=== PATIENT | female | born 1960 | race Caucasian/White ===

== ENCOUNTER 2018-09-22 09:15 | Inpatient (IN) | payer OTHER ==
[2018-09-22 09:40] VITALS: BMI 19.9
--- NOTE | 2018-09-22 10:51 | HP ---
COWS - Scale Resting Pulse: 1= [place] 81-100 Sweatin= Chills/Flushing Restless Observation: 0= Sits Still Pupil Size: 0= Normal to Room Light Bone or Joint Aches: 2= Severe Diffuse Aches Runny Nose/ Eye Tearin= Runny Nose/Eyes GI Upset > 30mins: 1= Stomach Cramp Tremor Observation: 0= None Yawning Observation: 1= 1-2x During Session Anxiety or Irritability: 2=Irritable/Anxious Goose Flesh Skin: 0=Smooth Skin COWS Score: 10 CIWA Score - Admission Criteria OASAS Guidelines: Admission for Medically Managed Detox: Requires at least one of the followin. CIWA greater than 12 2. Seizures within the past 24 hours 3. Delirium tremens within the past 24 hours 4. Hallucinations within the past 24 hours 5. Acute intervention needed for co occurring medical disorder 6. Acute intervention needed for co occurring psychiatric disorder 7. Severe withdrawal that cannot be handled at a lower level of care (continued vomiting, continued diarrhea, abnormal vital signs) requiring intravenous medication and/or fluids 8. Admission ROS [facility] Allergies/Adverse Reactions: Allergies Allergy/AdvReac Type Severity Reaction Status Date / Time No Known Allergies Allergy Verified 09/22/18 10:10 History of Present Illness: patient here requesting detox from heroin use , reports daily 2 bags via inhalation since age 31 with intermittent periods of sobriety , most recently 7 months ago x 7 months, detox x 2 2018 most recently @ [facility], rehab x 24 May 2018, relapse after d/c , OD x 2 most recently summer 2017 Narcan by EMS , taken to [facility] . Denies outpatient program history . Was in [facility] @ [facility] ( [place], [place] ) 5 years ago MDD 50 mg, tapered off. utox: + esmer , + opi, + bzo cocaine use : 2 bags not daily since age 46 benzo : denies tobacco : 10/27 ppd , requesting nrt w/ patch . PMhx : HIV (dx 1995 , RF=ST, treated in the past at [facility] , latest took meds > 1 yr ago), Hep C (dx 1995 , RF=ST ), no tx . ,breast cancer 1997 ( did not followup " I might have gone once and that's it ) with chemotherapy in 1997 . PSHx: left radical mastectomy 1997 , umbilical hernia ( > 10 years ago ) daughter age 30 A & W Psych : depression, anxiety , suicidal thoughts , denies prior SA /denies current SI/ HI . homeless , unemployed . Exam Limitations: No Limitations - Ebola screening Have you traveled outside of the country in the last 21 days: No Have you had contact with anyone from an Ebola affected area: No Have you been sick,other than usual withdrawal symptoms: No - Review of Systems Constitutional: See HPI EENT: reports: Other (reading glasses , does not have , reports " I am supposed to wear them ") Respiratory: reports: No Symptoms reported Cardiac: reports: No Symptoms Reported GI: reports: See HPI : reports: Frequency Musculoskeletal: reports: Muscle Pain Integumentary: reports: Rash (rash on toribio UE / legs , pt states went to ER 2 weeks ago - per pt told allergic reaction to dust mites) Endocrine: reports: No Symptoms Reported Psychiatric: reports: Orientated x3, Anxious Patient History - Patient Medical History Hx Anemia: Yes Hx Asthma: Yes (ALBUTEROL) Hx Chronic Obstructive Pulmonary Disease (COPD): No Hx Cancer: No Hx Cardiac Disorders: No Hx Congestive Heart Failure: No Hx Hypertension: No Hx Hypercholesterolemia: No Hx Pacemaker: No HX Cerebrovascular Accident: No Hx Seizures: No Hx Dementia: No Hx Diabetes: No Hx Gastrointestinal Disorders: Yes Hx Liver Disease: No Hx Genitourinary Disorders: Yes (vag d/c thick yellow fishy odor ) Hx Sexually Transmitted Disorders: Yes (HIV) Hx Renal Disease (ESRD): No Hx Thyroid Disease: No Hx Human Immunodeficiency Virus (HIV): Yes (1993- no arv , no meds ) Hx Hepatitis C: Yes Hx Depression: Yes Hx Suicide Attempt: No Hx Bipolar Disorder: No Hx Schizophrenia: No - Patient Surgical History Past Surgical History: Yes Hx Neurologic Surgery: No Hx Cataract Extraction: No Hx Cardiac Surgery: No Hx Lung Surgery: No Hx Breast Surgery: Yes Hx Breast Biopsy: Yes (1991- left radical mastectomy ) Hx Abdominal Surgery: Yes (Umbilical Hernia Repair) Hx Appendectomy: No Hx Cholecystectomy: No Hx Genitourinary Surgery: No Hx Section: No Hx Orthopedic Surgery: No Anesthesia Reaction: No - PPD History Previous Implant?: Yes Documented Results: Negative w/proof Implanted On Prior [facility] Admission?: Yes Date: 07/25/14 Results: NEGATIVE - Reproductive History Last Menstrual Period: 07/03/12 Patient : No - Smoking Cessation Smoking history: Current every day smoker Have you smoked in the past 12 months: Yes Aproximately how many cigarettes per day: 5 Hx Chewing Tobacco Use: No Initiated information on smoking cessation: No - Substances Abused Heroin Route: Inhalation Frequency: Daily Amount used: 2 BAGS Age of first use: 31 Date of Last Use: 09/21/18 Cocaine Route: Smoking Frequency: 1-2 times per week Amount used: 2 BAGS Age of first use: 26 Date of Last Use: 09/21/18 Family Disease History - Family Disease History Family Disease History: Heart Disease: Sister, Other: Mother (htn , alzheimers , breast ca) Admission Physical Exam [facility] - Vital Signs Vital Signs: Vital Signs - 24 hr 09/22/18 09:36 Temperature 97.1 F L Pulse Rate 85 Respiratory 17 Rate Blood Pressure 130/76 - Physical General Appearance: Yes: No Apparent Distress, Thin HEENTM: Yes: EOMI, Hearing grossly Normal, Normocephalic, Normal Voice, Pharynx Normal Respiratory: Yes: Chest Non-Tender, Lungs Clear, Normal Breath Sounds Neck: Yes: No masses,lesions,Nodules, Trachea in good position Breast: Yes: Breast Exam Deferred, Surgical Scar (s/p left mastectomy) Cardiology: Yes: Regular Rhythm, Regular Rate, S1, S2, Tachycardia Abdominal: Yes: Normal Bowel Sounds, Non Tender, Flat, Soft Genitourinary: Yes: Frequency Musculoskeletal: Yes: full range of Motion Extremities: Yes: Normal Capillary Refill, Normal Inspection, Normal Range of Motion Neurological: Yes: Fully Oriented, Motor Strength 5/5 Integumentary: Yes: Rash (toribio UE petechial rash) - Diagnostic (1) Opioid dependence Current Visit: Yes Status: Acute Qualifiers: Substance use status: in withdrawal Qualified Code(s): F11.23 - Opioid dependence with withdrawal (2) Cocaine dependence Current Visit: No Status: Chronic Qualifiers: Substance use status: uncomplicated Qualified Code(s): F14.20 - Cocaine dependence, uncomplicated (3) Nicotine dependence Current Visit: No Status: Chronic Qualifiers: Nicotine product type: cigarettes Substance use status: uncomplicated Qualified Code(s): F17.210 - Nicotine dependence, cigarettes, uncomplicated BHS Breath Alcohol Content Breath Alcohol Content: 0 Urine Pregancy Test - Result Urine Test Results: Negative- NO Line Present Urine Drug Screen - Results Drug Screen Negative: No Urine Drug Screen Results: ESMER-Cocaine, OPI-Opiates, BZO-Benzodiazepines
[2018-09-22] MEDS ORDERED: MAGNESIUM CITRATE 300 ML BOTTLE PO PRN (10:59)
[2018-09-22] MEDS ORDERED: MAG HYDROX/AL HYDROX/SIMETH 30 ML UNIT-DOSE CUP PO PRN (10:59)
[2018-09-22] MEDS ORDERED: P-EPHED 60MG/TRIPROLIDI 2.5MG TABLET PO PRN (10:59)
[2018-09-22] MEDS ORDERED: MENTHOL/PHENOL 1 EACH UD MM PRN (10:59)
[2018-09-22] MEDS ORDERED: MAGNESIUM HYDROX 2400MG/30ML ORAL SUSPENSION 30 ML CUP PO PRN (10:59)
[2018-09-22] MEDS ORDERED: guaiFENesin/D-METHORPHAN HB 10 ML UNIT-DOSE CUPS PO PRN (10:59)
[2018-09-22] MEDS ORDERED: METHADONE HCL 10 MG TABLET (FOR DETOX USE ONLY) PO ONE ×2 (11:30→23:00)
[2018-09-22] MEDS ORDERED: ALBUTEROL SO4 8 GM HFA INHALER IH PRN (12:39)
[2018-09-22] MEDS ORDERED: diphenhydrAMINE HCL 25 MG CAPSULE (FP) PO PRN (12:43)
[2018-09-22] MEDS: IBUPROFEN 400 MG TABLET (FP) PO PRN (22:13)
[2018-09-22] MEDS: diazePAM 5 MG TABLET PO PRN (22:13)
[2018-09-22] MEDS: THIAMINE HCL 100 MG TABLET (FP) PO SCH (22:13)
[2018-09-22 23:16] LABS: URINE APPEARANCE TURBID; URINE BILIRUBIN NEGATIVE (<2.0 mg/dL); URINE COLOR YELLOW; URINE GLUCOSE (UA) NEGATIVE (NEGATIVE); URINE KETONE NEGATIVE (NEGATIVE); URINE LEUK ESTERASE 3+ (NEGATIVE); URINE NITRITE NEGATIVE (NEGATIVE); URINE PROTEIN 1+ (NEGATIVE); URINE UROBILINOGEN NEGATIVE mg/dL (0.2-1.0)
[2018-09-22 23:34] LABS: EPI CELLS MODERATE /HPF (FEW); URINE BACTERIA MODERATE /hpf (NONE SEEN)
[2018-09-23] MEDS ORDERED: METHADONE HCL 5 MG TABLET (FOR DETOX USE ONLY) PO ONE (10:00)
[2018-09-23] MEDS ORDERED: METHADONE HCL 10 MG TABLET (FOR DETOX USE ONLY) PO ONE (10:00)
[2018-09-23] MEDS: PRENATAL VITAMINS W/ FOLIC ACID TABLET (FP) PO SCH (10:32)
[2018-09-23] MEDS: diazePAM 5 MG TABLET PO PRN ×2 (10:34→22:20)
[2018-09-23] MEDS: NICOTINE 7 MG/24 HOURS TOPICAL PATCH TD SCH (10:37)
[2018-09-23 10:52] LABS: HEMATOCRIT 32.1 % (32.4-45.2); HEMOGLOBIN 10.2 GM/dL (10.7-15.3); MCH 27.8 pg (25.7-33.7); MCHC 31.7 g/dl (32.0-36.0); MEAN CELL VOLUME 87.8 fl (80-96); MEAN PLT VOLUME 9.8 fl (7.5-11.1); PLATELET COUNT 236 K/MM3 (134-434); RBC 3.66 M/mm3 (3.60-5.2); RDW 19.8 % (11.6-15.6); WHITE BLOOD COUNT 3.5 K/mm3 (4.0-10.0)
[2018-09-23 11:03] LABS: ALBUMIN 3.4 g/dl (3.4-5.0); ALK PHOS 53 U/L (45-117); ANION GAP 6 MMOL/L (8-16); BILIRUBIN,TOTAL 0.5 mg/dL (0.2-1); BLOOD UREA NITROGEN 19 mg/dL (7-18); CALCIUM 9.1 mg/dL (8.5-10.1); CHLORIDE 105 mmol/L (98-107); CO2 29 mmol/L (21-32); CREATININE 0.9 mg/dL (0.55-1.3); GLUCOSE,RANDOM 86 mg/dL (74-106); POTASSIUM 3.7 mmol/L (3.5-5.1); SGOT/AST 25 U/L (15-37); SGPT/ALT 20 U/L (13-61); SODIUM 141 mmol/L (136-145); TOT PROT 9.7 g/dl (6.4-8.2)
[2018-09-23] MEDS ORDERED: BACITRACIN 0.9 GM PACKET TP SCH (11:15)
--- NOTE | 2018-09-23 12:27 | PN ---
S COWS - Scale Resting Pulse: 1= [place] 81-100 Sweatin= No chills or Flushing Restless Observation: 3= Extraneous Movement Pupil Size: 0= Normal to Room Light Bone or Joint Aches: 2= Severe Diffuse Aches Runny Nose/ Eye Tearin= Nasal Congestion GI Upset > 30mins: 1= Stomach Cramp Tremor Observation of Outstretched Hands: 2= Slight Tremor Visible Yawning Observation: 0= None Anxiety or Irritability: 2=Irritable/Anxious Goose Flesh Skin: 0=Smooth Skin COWS Score: 12 S Progress Note (SOAP) Subjective: DEPRESSED ABD CRAMPS BACKACHE SHAKES TO R ARM ITCHINESS TO SKIN Objective: 09/23/18 12:22 A & O X 3 R ARM TREMOR ANXIOUS DENIES SI/HI Vital Signs Temperature 97.9 F 09/23/18 10:44 Pulse Rate 92 H 09/23/18 10:44 Respiratory Rate 18 09/23/18 10:44 Blood Pressure 110/68 09/23/18 10:44 O2 Sat by Pulse Oximetry (%) Laboratory Last Values WBC 3.5 K/mm3 (4.0-10.0) L 09/23/18 05:30 RBC 3.66 M/mm3 (3.60-5.2) 09/23/18 05:30 Hgb 10.2 GM/dL (10.7-15.3) L 09/23/18 05:30 Hct 32.1 % (32.4-45.2) L 09/23/18 05:30 MCV 87.8 fl (80-96) 09/23/18 05:30 MCH 27.8 pg (25.7-33.7) D 09/23/18 05:30 MCHC 31.7 g/dl (32.0-36.0) L 09/23/18 05:30 RDW 19.8 % (11.6-15.6) H 09/23/18 05:30 Plt Count 236 K/MM3 (134-434) 09/23/18 05:30 MPV 9.8 fl (7.5-11.1) 09/23/18 05:30 Sodium 141 mmol/L (136-145) 09/23/18 05:30 Potassium 3.7 mmol/L (3.5-5.1) 09/23/18 05:30 Chloride 105 mmol/L (98-107) 09/23/18 05:30 Carbon Dioxide 29 mmol/L (21-32) 09/23/18 05:30 Anion Gap 6 MMOL/L (8-16) L 09/23/18 05:30 BUN 19 mg/dL (7-18) H 09/23/18 05:30 Creatinine 0.9 mg/dL (0.55-1.3) 09/23/18 05:30 Creat Clearance w eGFR > 60 (>60) 09/23/18 05:30 Random Glucose 86 mg/dL (74-106) 09/23/18 05:30 Calcium 9.1 mg/dL (8.5-10.1) 09/23/18 05:30 Total Bilirubin 0.5 mg/dL (0.2-1) 09/23/18 05:30 AST 25 U/L (15-37) 09/23/18 05:30 ALT 20 U/L (13-61) 09/23/18 05:30 Alkaline Phosphatase 53 U/L (45-117) 09/23/18 05:30 Total Protein 9.7 g/dl (6.4-8.2) H 09/23/18 05:30 Albumin 3.4 g/dl (3.4-5.0) 09/23/18 05:30 Urine Color Yellow 09/22/18 23:00 Urine Appearance Turbid 09/22/18 23:00 Urine pH 5.0 (5.0-8.0) 09/22/18 23:00 Ur Specific [place] 1.030 (1.010-1.035) 09/22/18 23:00 Urine Protein 1+ (NEGATIVE) H 09/22/18 23:00 Urine Glucose (UA) Negative (NEGATIVE) 09/22/18 23:00 Urine Ketones Negative (NEGATIVE) 09/22/18 23:00 Urine Blood Negative (NEGATIVE) 09/22/18 23:00 Urine Nitrite Negative (NEGATIVE) 09/22/18 23:00 Urine Bilirubin Negative (<2.0 mg/dL) 09/22/18 23:00 Urine Urobilinogen Negative mg/dL (0.2-1.0) 09/22/18 23:00 Ur Leukocyte Esterase 3+ (NEGATIVE) H 09/22/18 23:00 Urine WBC (Auto) 25 /hpf (3-5) 09/22/18 23:00 Urine RBC (Auto) 9 /hpf (0-3) 09/22/18 23:00 Ur Epithelial Cells Moderate /HPF (FEW) 09/22/18 23:00 Urine Bacteria Moderate /hpf (NONE SEEN) 09/22/18 23:00 LABS NOTED ABNORMAL URINE RESULT Assessment: 09/23/18 12:27 WITHDRAWAL SX HX OF DEPRESSION Plan: CONTINUE DETOX BACITRACIN FOR THE RASH INCREASE HYDRATION
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
[2018-09-23] MEDS: THIAMINE HCL 100 MG TABLET (FP) PO SCH (22:18)
[2018-09-23] MEDS: BACITRACIN 0.9 GM PACKET TP SCH (22:18)
[2018-09-23] MEDS: MELATONIN 5 MG TABLETS PO PRN (22:18)
[2018-09-23] MEDS: FERROUS SO4 325 MG TABLET (FP) PO SCH (22:18)
[2018-09-24] MEDS: diazePAM 5 MG TABLET PO PRN ×2 (04:03→10:13)
[2018-09-24] MEDS ORDERED: COLLOIDAL OATMEAL 1 BAR EACH TP PRN (09:48)
[2018-09-24] MEDS ORDERED: METHADONE HCL 5 MG TABLET (FOR DETOX USE ONLY) PO ONE (10:00)
[2018-09-24] MEDS: PRENATAL VITAMINS W/ FOLIC ACID TABLET (FP) PO SCH (10:13)
[2018-09-24] MEDS: BACITRACIN 0.9 GM PACKET TP SCH ×2 (10:14→22:05)
[2018-09-24] MEDS: NICOTINE 7 MG/24 HOURS TOPICAL PATCH TD SCH (10:14)
[2018-09-24] MEDS: FERROUS SO4 325 MG TABLET (FP) PO SCH ×2 (10:14→22:07)
--- NOTE | 2018-09-24 10:33 | PN ---
BHS COWS - Scale Resting Pulse: 1= [place] 81-100 Sweatin= Chills/Flushing Restless Observation: 1= Difficult to Sit Still Pupil Size: 1= Pupils >than Normal Bone or Joint Aches: 1= Mild Discomfort Runny Nose/ Eye Tearin= Nasal Congestion GI Upset > 30mins: 1= Stomach Cramp Tremor Observation of Outstretched Hands: 1= Tremor [place], Not Seen Yawning Observation: 1= 1-2x During Session Anxiety or Irritability: 1=Feels Anxious/Irritable Goose Flesh Skin: 0=Smooth Skin COWS Score: 10 BHS Progress Note (SOAP) Subjective: body aches tremor trouble sleep at night sweat restlessness Objective: 09/24/18 10:35 Vital Signs Temperature 97.7 F 09/24/18 06:00 Pulse Rate 61 09/24/18 06:00 Respiratory Rate 16 09/24/18 06:00 Blood Pressure 127/84 09/24/18 06:00 O2 Sat by Pulse Oximetry (%) Laboratory Last Values WBC 3.5 K/mm3 (4.0-10.0) L 09/23/18 05:30 RBC 3.66 M/mm3 (3.60-5.2) 09/23/18 05:30 Hgb 10.2 GM/dL (10.7-15.3) L 09/23/18 05:30 Hct 32.1 % (32.4-45.2) L 09/23/18 05:30 MCV 87.8 fl (80-96) 09/23/18 05:30 MCH 27.8 pg (25.7-33.7) D 09/23/18 05:30 MCHC 31.7 g/dl (32.0-36.0) L 09/23/18 05:30 RDW 19.8 % (11.6-15.6) H 09/23/18 05:30 Plt Count 236 K/MM3 (134-434) 09/23/18 05:30 MPV 9.8 fl (7.5-11.1) 09/23/18 05:30 Sodium 141 mmol/L (136-145) 09/23/18 05:30 Potassium 3.7 mmol/L (3.5-5.1) 09/23/18 05:30 Chloride 105 mmol/L (98-107) 09/23/18 05:30 Carbon Dioxide 29 mmol/L (21-32) 09/23/18 05:30 Anion Gap 6 MMOL/L (8-16) L 09/23/18 05:30 BUN 19 mg/dL (7-18) H 09/23/18 05:30 Creatinine 0.9 mg/dL (0.55-1.3) 09/23/18 05:30 Creat Clearance w eGFR > 60 (>60) 09/23/18 05:30 Random Glucose 86 mg/dL (74-106) 09/23/18 05:30 Calcium 9.1 mg/dL (8.5-10.1) 09/23/18 05:30 Total Bilirubin 0.5 mg/dL (0.2-1) 09/23/18 05:30 AST 25 U/L (15-37) 09/23/18 05:30 ALT 20 U/L (13-61) 09/23/18 05:30 Alkaline Phosphatase 53 U/L (45-117) 09/23/18 05:30 Total Protein 9.7 g/dl (6.4-8.2) H 09/23/18 05:30 Albumin 3.4 g/dl (3.4-5.0) 09/23/18 05:30 Urine Color Yellow 09/22/18 23:00 Urine Appearance Turbid 09/22/18 23:00 Urine pH 5.0 (5.0-8.0) 09/22/18 23:00 Ur Specific [place] 1.030 (1.010-1.035) 09/22/18 23:00 Urine Protein 1+ (NEGATIVE) H 09/22/18 23:00 Urine Glucose (UA) Negative (NEGATIVE) 09/22/18 23:00 Urine Ketones Negative (NEGATIVE) 09/22/18 23:00 Urine Blood Negative (NEGATIVE) 09/22/18 23:00 Urine Nitrite Negative (NEGATIVE) 09/22/18 23:00 Urine Bilirubin Negative (<2.0 mg/dL) 09/22/18 23:00 Urine Urobilinogen Negative mg/dL (0.2-1.0) 09/22/18 23:00 Ur Leukocyte Esterase 3+ (NEGATIVE) H 09/22/18 23:00 Urine WBC (Auto) 25 /hpf (3-5) 09/22/18 23:00 Urine RBC (Auto) 9 /hpf (0-3) 09/22/18 23:00 Ur Epithelial Cells Moderate /HPF (FEW) 09/22/18 23:00 Urine Bacteria Moderate /hpf (NONE SEEN) 09/22/18 23:00 RPR Titer Nonreactive (NONREACTIVE) 09/23/18 05:30 lab noted uti Assessment: 09/24/18 10:36 withdrawal sx uti Plan: continue detox bactrium ds bid
[2018-09-24] MEDS ORDERED: SULFAMETHOXAZOLE/TRIMETHOPRIM 800MG/160MG D.S. TABLET PO SCH (10:45)
[2018-09-24] MEDS: SULFAMETHOXAZOLE/TRIMETHOPRIM 800MG/160MG D.S. TABLET PO SCH ×2 (11:47→22:07)
[2018-09-24] MEDS: IBUPROFEN 400 MG TABLET (FP) PO PRN (19:22)
[2018-09-24] MEDS ORDERED: CLOTRIMAZOLE 1% VAGINAL CREAM WITH APPLICATOR 45 GM TUBE VG SCH (22:00)
[2018-09-24] MEDS: THIAMINE HCL 100 MG TABLET (FP) PO SCH (22:03)
[2018-09-24] MEDS: MELATONIN 5 MG TABLETS PO PRN (22:08)
[2018-09-25] MEDS ORDERED: METHADONE HCL 5 MG TABLET (FOR DETOX USE ONLY) PO ONE (06:00)
[2018-09-25] MEDS: ACETAMINOPHEN 325 MG TABLET (FP) PO PRN ×2 (06:10→14:02)
--- NOTE | 2018-09-25 09:26 | PN ---
BHS Progress Note (SOAP) Subjective: very little sweats Objective: 09/25/18 09:25 Vital Signs Temperature 97.7 F 09/25/18 09:16 Pulse Rate 97 H 09/25/18 09:16 Respiratory Rate 18 09/25/18 09:16 Blood Pressure 130/82 09/25/18 09:16 O2 Sat by Pulse Oximetry (%) aaox3 ambulating no acute distress Assessment: 09/25/18 09:25 no s/s withdrawals noted Plan: d/c today.
--- NOTE | 2018-09-25 09:27 | DS ---
[facility] Detox Discharge Summary Admission Date: 09/22/18 Discharge Date: 09/25/18 - History Present History: Opioid Dependence - Physical Exam Results Vital Signs: Vital Signs Temperature 97.7 F 09/25/18 09:16 Pulse Rate 97 H 09/25/18 09:16 Respiratory Rate 18 09/25/18 09:16 Blood Pressure 130/82 09/25/18 09:16 O2 Sat by Pulse Oximetry (%) - Treatment Hospital Course: Detox Protocol Followed, Detoxed Safely, Responded well, Discharged Condition Good, Rehab Referral Accepted - Medication Discharge Medications: Ambulatory Orders Albuterol Sulfate Inhaler - [Ventolin Hfa Inhaler -] 1 - 2 inh PO Q4H PRN - Diagnosis (1) Insomnia Current Visit: Yes Status: Acute (2) Opioid dependence Current Visit: Yes Status: Chronic Qualifiers: Substance use status: uncomplicated Qualified Code(s): F11.20 - Opioid dependence, uncomplicated (3) Substance induced mood disorder Current Visit: Yes Status: Acute (4) Cocaine dependence Current Visit: Yes Status: Chronic Qualifiers: Substance use status: uncomplicated Qualified Code(s): F14.20 - Cocaine dependence, uncomplicated (5) Nicotine dependence Current Visit: Yes Status: Chronic Qualifiers: Nicotine product type: cigarettes Substance use status: uncomplicated Qualified Code(s): F17.210 - Nicotine dependence, cigarettes, uncomplicated (6) Breast cancer, left breast Current Visit: No Status: Acute (7) HIV (human immunodeficiency virus infection) Current Visit: No Status: Acute (8) Opioid dependence on agonist therapy Current Visit: No Status: Acute (9) PTSD (post-traumatic stress disorder) Current Visit: No Status: Acute (10) Substance-induced sleep disorder Current Visit: No Status: Acute (11) Tinea pedis Current Visit: No Status: Acute (12) Vaginal discharge Current Visit: No Status: Acute - AMA Did Patient Leave Against Medical Advice: No (rehab or outpatient)
[2018-09-25] MEDS: FERROUS SO4 325 MG TABLET (FP) PO SCH (10:17)
[2018-09-25] MEDS: SULFAMETHOXAZOLE/TRIMETHOPRIM 800MG/160MG D.S. TABLET PO SCH (10:17)
[2018-09-25] MEDS: NICOTINE 7 MG/24 HOURS TOPICAL PATCH TD SCH (10:17)
[2018-09-25] MEDS: BACITRACIN 0.9 GM PACKET TP SCH (10:17)
[2018-09-25] MEDS: PRENATAL VITAMINS W/ FOLIC ACID TABLET (FP) PO SCH (10:17)
[2018-09-25 13:57] VITALS: BP 133/84; PULSE 110; TEMP 98.2
== END 2018-09-25 15:18 | disposition home or self-care (01) | DRG 773 ==
LOC: YASAS 09:15 → Y6N 11:25
PROC: HZ2ZZZZ Detoxification Services for Substance Abuse Treatment (ICD-10-PCS; principal; 2018-09-22)
DX: F11.23 Opioid dependence with withdrawal (principal); F14.20 Cocaine dependence, uncomplicated; F17.210 Nicotine dependence, cigarettes, uncomplicated; F32.9 Major depressive disorder, single episode, unspecified; F41.9 Anxiety disorder, unspecified; F19.282 Other psychoactive substance dependence with psychoactive substance-induced sleep disorder; F43.10 Post-traumatic stress disorder, unspecified; Z21 Asymptomatic human immunodeficiency virus [HIV] infection status; N39.0 Urinary tract infection, site not specified; G47.00 Insomnia, unspecified; B35.3 Tinea pedis; E03.9 Hypothyroidism, unspecified; J45.909 Unspecified asthma, uncomplicated; Z85.3 Personal history of malignant neoplasm of breast; Z90.12 Acquired absence of left breast and nipple; N89.8 Other specified noninflammatory disorders of vagina; Z91.19 Patient's noncompliance with other medical treatment and regimen; Z59.0 Homelessness
CPT/HCPCS: 36415; 80053; 81003; 81015; 85027; 86593